=== PATIENT | male | born 1960 | race Caucasian/White ===

== ENCOUNTER 2017-01-25 20:40 | Emergency (ER) | payer BC ==
[2017-01-25 22:13] VITALS: BP 150/79
--- NOTE | 2017-01-25 22:32 | EDM.PDOC ---
ED HPI GENERAL MEDICAL PROBLEM - General Chief Complaint: Upper Extremity Injury/Pain Stated Complaint: METAL IN ARM Time Seen by Provider: 01/25/17 22:30 Source of Information: Reports: Patient History Limitations: Reports: No Limitations - History of Present Illness INITIAL COMMENTS - FREE TEXT/NARRATIVE: Jovon is a 56 year old male who presents to the ED tonight with possible metal in his arm from an ax. Patient as chopping wood when he said ax split and metal entered his left arm above elbow. He denies any other injury. Onset: Today Duration: Hour(s): (3) Left Upper Arm Pain Score (Numeric/FACES): 3 - Related Data Allergies Allergy/AdvReac Type Severity Reaction Status Date / Time No Known Allergies Allergy Verified 01/25/17 22:23 Home Meds: Home Meds NK [No Known Home Meds] 01/25/17 [History] Review of Systems - Review of Systems Review Of Systems: ROS reveals no pertinent complaints other than HPI. ED EXAM, GENERAL - Physical Exam Exam: See Below Exam Limited By: No Limitations General Appearance: Alert, WD/WN, No Apparent Distress Respiratory/Chest: No Respiratory Distress, Lungs Clear Cardiovascular: Normal Peripheral Pulses, Regular Rate, Rhythm, No Murmur Extremities: Normal Inspection Neurological: Alert, Oriented Psychiatric: Normal Affect, Normal Mood Skin Exam: Warm, Dry, Other (Small 2 mm puncture wound to left upper arm just above antecubital fossa, no FB palpated, no signs of infection) Course - Vital Signs Text/Narrative:: Jovon is a 56 year old male who presents to the ED today with c/o possible metal FB in left arm. Please refer to HPI and focused exam. Patient on exam has mild puncture wound, no drainage, no signs of infection, no palpable FB. X- ray obtained and shows maybe a 3 mm piece of metal noted in left upper arm medial bicep tissues, interestingly there is another piece, similar size in left forearm just above medial radius. Discussed with patient, explained we typically don't do anything with these, should heal fine. Entry wound cleaned and bacitracin applied. Follow up as needed. Patient agreeable and discharged in stable condition. DT updated while here in the ED. Last Recorded V/S: Last Vital Signs Temp 36.4 C 01/25/17 22:10 Pulse 79 01/25/17 22:10 Resp 18 01/25/17 22:10 BP 150/79 H 01/25/17 22:10 Pulse Ox 97 01/25/17 22:10 - Orders/Labs/Meds Orders: Active Orders 24 hr Category Date Time Status Vaccines to be Administered [RC] PER UNIT ROUTINE Care 01/25/17 22:35 Active Humerus Lt [CR] Stat Exams 01/25/17 22:29 Taken Meds: Medications Discontinued Medications Generic Name Dose Route Start Last Admin Trade Name Julio Cesar PRN Reason Stop Dose Admin Diphtheria/Tetanus/Acell Pertussis 0.5 ml 01/25/17 22:35 Adacel IM 01/25/17 22:36 .ONCE ONE Departure - Departure Time of Disposition: 23:00 Disposition: Home, Self-Care 01 Condition: Good Clinical Impression: Foreign body (FB) in soft tissue - Discharge Information Forms: ED Department Discharge Additional Instructions: Keep wound clean and dry. Follow up as needed. Return with any complications. - My Orders Last 24 Hours: My Active Orders 01/25/17 22:29 Humerus Lt [CR] Stat 01/25/17 22:35 Vaccines to be Administered [RC] PER UNIT ROUTINE - Assessment/Plan Last 24 Hours: My Active Orders 01/25/17 22:29 Humerus Lt [CR] Stat 01/25/17 22:35 Vaccines to be Administered [RC] PER UNIT ROUTINE
[2017-01-25] MEDS ORDERED: Diphtheria,Pertussis(Acell),Tetanus Vaccine 0.5 ML SDV IM ONE (22:35)
[2017-01-25] MEDS ORDERED: Bacitracin Oint 1 GM U/D Packet TOP ONE (22:51)
--- NOTE | 2017-01-27 10:12 | CR ---
Tiny metallic density within the soft tissues of the humerus laterally and anteriorly. Tiny metallic density within the forearm as well on the lateral view. Vague lucency at the humeral head superiorl y with some sclerosis. Findings could potentially indicate indicate a humeral head fracture. Recomme nd dedicated views.
== END 2017-01-25 23:07 | disposition home or self-care (01) ==
LOC: JP.ED 20:40
DX: S50.852A Superficial foreign body of left forearm, initial encounter (principal); Z23 Encounter for immunization; X58.XXXA Exposure to other specified factors, initial encounter
CPT/HCPCS: 73060-26-LT; 73060-LT; 90471; 90715; 99284-25